=== PATIENT | female | born 2005 | race Caucasian/White ===

== ENCOUNTER 2024-08-19 11:00 | Emergency (ER) | payer OTHER ==
[~2024-08-19] VITALS: Ht 170.2 cm; Wt 61.2 kg
[~2024-08-19 11:00] MED LIST: BENA25CA2 PO; MOTR200T44 PO; SUMA20SP4; TYLE325T5 PO; [UNRECOGNIZED DRUG - CODE] PO
[2024-08-19 12:04] LABS: BASO % 0.4 % (0.0-1.0); EOS # 0.1 10^3/uL (0.0-0.5); EOS % 1.5 % (0.0-3.0); HEMATOCRIT 39.4 % (36.0-47.0); HEMOGLOBIN 13.4 g/dl (12.0-15.5); LYMPH # 3.4 10^3/uL (1.5-5.0); LYMPH % 49.6 % (24.0-44.0); MEAN CORPUSCULAR HEMOGLOBIN 29.1 pg (27.0-33.0); MEAN CORPUSCULAR VOLUME 85.5 fl (80.0-96.0); MONO # 0.5 10^3/uL (0.0-0.8); MONO % 7.2 % (2.0-8.0); NEUTROPHILS # 2.8 10^3/uL (1.5-8.5); NEUTROPHILS % 41.2 % (36.0-66.0); PLATELET COUNT, AUTOMATED 392 10^3/uL (150-450); RED BLOOD COUNT 4.61 10^6/uL (4.00-5.40); WHITE BLOOD COUNT 6.8 10^3/uL (4.0-10.0)
[2024-08-19] MEDS: dexAMETHasone 20MG/5ML VIAL IV ONE (12:18)
[2024-08-19] MEDS: ASPIRIN 81MG CHEW TABLET PO ONE (12:18)
[2024-08-19 12:19] LABS: INR 1.14; PARTIAL THROMBOPLASTIN TIME 28.3 SECONDS (24.8-34.2); PROTHROMBIN TIME 14.3 SECONDS (12.5-14.5)
[2024-08-19] MEDS: IPRATROPIUM 0.5MG/ALBUTEROL 2.5MG INH SOL UD 3ML (DUONEB) NEB PRN (12:23)
[2024-08-19 12:27] LABS: ALBUMIN 4.7 G/DL (3.2-5.2); ALKALINE PHOSPHATASE 59 U/L (46-116); ALT/SGPT 16 U/L (7.0-40); AST/SGOT 9 U/L (<34); BILIRUBIN,DIRECT 0.2 MG/DL (<0.4); BILIRUBIN,TOTAL 0.6 MG/DL (0.3-1.2)
[2024-08-19 12:29] LABS: HCG, SERUM QUALITATIVE NEGATIVE (NEGATIVE)
[2024-08-19] MEDS ORDERED: ISOVUE-370 76% 100ML VIAL As Ordered ONE (12:31)
[2024-08-19 13:17] LABS: CK-MB VALUE MASS < 1.0 NG/ML (<3.6)
[2024-08-19 13:28] LABS: CPK CREATINE PHOSPHOKINASE 54 U/L (34-145); MB/CK RELATIVE INDEX 1.85 (< OR =4)
[2024-08-19] MEDS ORDERED: VENTAER INH (13:48)
[2024-08-19 13:54] VITALS: BP 101/58; TEMP 95.8; O2SAT 100
== END 2024-08-19 14:01 | disposition home or self-care (01) ==
LOC: M ED 11:00
DX: J45.909 Unspecified asthma, uncomplicated (principal); K76.89 Other specified diseases of liver; G43.909 Migraine, unspecified, not intractable, without status migrainosus; Z79.52 Long term (current) use of systemic steroids
CPT/HCPCS: 36415; 71275; 80047; 80076; 82550; 82553; 84484; 84703; 85025; 85610; 85730; 87486; 87581; 87633; 87798; 94640; 94760; 96374; 99284; J1100; Q9967

== ENCOUNTER → 2024-08-22 | Outpatient (CLI) | payer OTHER ==
[~2024-08-22] MED LIST changes: +VENTAER INH
[2024-08-22 15:49] LABS: IONIZED CALCIUM 4.7 MG/DL (4.5-5.3)
[2024-08-22 16:25] LABS: ALBUMIN 4.1 G/DL (3.2-5.2); ALKALINE PHOSPHATASE 54 U/L (46-116); ALT/SGPT 12 U/L (7.0-40); AST/SGOT < 8 U/L (<34); BILIRUBIN,TOTAL 0.3 MG/DL (0.3-1.2); BLOOD UREA NITROGEN 8 MG/DL (9-23); CALCIUM LEVEL 9.9 MG/DL (8.5-10.1); CARBON DIOXIDE LEVEL 23 MMOL/L (20-31); CHLORIDE LEVEL 110 MMOL/L (98-107); CREATININE FOR GFR 0.57 MG/DL (0.55-1.30); GLUCOSE, FASTING 86 MG/DL (60-100); POTASSIUM SERUM 3.6 MMOL/L (3.5-5.1); SODIUM LEVEL 139 MMOL/L (136-145); TOTAL PROTEIN 7.4 G/DL (5.7-8.2)
== END ==
LOC: M LAB 15:29
PROVIDERS: ATTEND Pediatrics
DX: R06.00 Dyspnea, unspecified (principal)

== ENCOUNTER → 2024-08-25 | Outpatient (CLI) | payer OTHER | LOC: M PLAIMG 12:35 | PROVIDERS: ATTEND Pediatrics | DX: R06.00 Dyspnea, unspecified (principal) ==

== ENCOUNTER → 2024-09-19 | Outpatient (CLI) | payer OTHER | LOC: M PLAIMG 08:04 | PROVIDERS: ATTEND Pediatrics | DX: D13.4 Benign neoplasm of liver (principal); K76.89 Other specified diseases of liver ==